=== PATIENT | male | born 1950 | race African-American/Black ===

== ENCOUNTER 2021-09-22 05:30 | Day surgery (SDC) | payer MEDICARE, MEDICAID ==
[~2021-09-22] VITALS: Ht 175.3 cm; Wt 68.0 kg
[~2021-09-22 05:30] MED LIST: ATOR10TA PO; CARV3.1242 PO; CYCLOPENTOLATE HCL 1% OPHTH DROPS 2ML RIGHTEYE ONE; LACTATED RINGERS 1,000 ML IV SCH; PHENYLEPHRINE HCL 10% OPHTH DROPS 5ML RIGHTEYE ONE; TROPICAMIDE 1% OPHTH DROPS 15ML RIGHTEYE ONE
[2021-09-22] MEDS ORDERED: LACTATED RINGERS 1,000 ML IV SCH (06:25)
[2021-09-22 06:31] LABS: HEMATOCRIT. 39.9 % (42.0-52.0); MEAN CORPUSCULAR HEMOGLOBIN 28.3 pg (28.0-32.0); MEAN CORPUSCULAR VOLUME 87.1 fL (80.0-94.0); MEAN PLATELET VOLUME 10.4 fl (7.4-10.4); PLATELET 141 x1000/uL (130-400); RED BLOOD CELL COUNT 4.58 mill/uL (4.7-6.1); RED CELL DISTRIBUTION WIDTH 12.7 % (11.6-14.6)
[2021-09-22] MEDS ORDERED: ASPI-1497 MT (06:45)
[2021-09-22] MEDS ORDERED: SACU1TAB MT (06:45)
[2021-09-22 06:57] LABS: CHLORIDE 109 mEq/L (98-107)
[2021-09-22] MEDS ORDERED: BALANCED SALT IRRIG SOLN COMB1 500ML OP ONE (07:15)
[2021-09-22] MEDS ORDERED: TRYPAN BLUE 0.5 ML DISP.SYRIN IO ONE (07:24)
[2021-09-22] MEDS ORDERED: HYALURONATE SODIUM 10 MG/ML 0.55ML SYRINGE IO ONE ×2 (07:25→09:00)
[2021-09-22] MEDS ORDERED: PHENYLEPHRINE HCL 10 MG/ML 1ML (IV VIAL) IV ONE (08:01)
[2021-09-22] MEDS ORDERED: MIDAZOLAM HCL 2 MG/2 ML VIAL ONE (08:01)
[2021-09-22] MEDS ORDERED: SODIUM CHLORIDE 0.9% 10ML VIAL ONE (08:02)
[2021-09-22] MEDS ORDERED: ONDANSETRON HCL 4MG/2ML INJ ONE (08:02)
[2021-09-22] MEDS ORDERED: EPHEDRINE SULFATE 50MG/ML VIAL ONE (08:02)
[2021-09-22] MEDS ORDERED: FENTANYL CITRATE/PF 50MCG/ML 2ML VIAL ONE (08:02)
[2021-09-22] MEDS ORDERED: DEXAMETHASONE 4MG/ML 1ML VIAL ONE (08:02)
[2021-09-22] MEDS ORDERED: LIDOCAINE HCL 1% 10 MG/ML 10ML VIAL ONE (08:02)
[2021-09-22] MEDS ORDERED: PROPOFOL 200MG/20ML VIAL IV ONE (08:03)
[2021-09-22] MEDS ORDERED: FENTANYL CITRATE/PF 50MCG/ML 2ML VIAL IV PRN (08:45)
[2021-09-22 09:00] LABS: PLATELET ESTIMATE NORMAL
[2021-09-22] MEDS ORDERED: PREDNISOLONE ACETATE 1% OPHTH DROPS 5ML ONE (09:00)
[2021-09-22] MEDS ORDERED: NEO/POLYMYX B SULF/DEXAMETH OPHTH OINT 3.5GM ONE (09:00)
[2021-09-22] MEDS ORDERED: BUPIVACAINE HCL/PF 0.75% (7.5MG/ML) 10ML ONE (09:00)
[2021-09-22] MEDS ORDERED: TETRACAINE 0.5% OPHTH DROPS 4ML ONE (09:00)
[2021-09-22] MEDS ORDERED: LIDOCAINE HCL/PF 2% 20 MG/ML 10ML VIAL ONE (09:00)
[2021-09-22] MEDS ORDERED: ACETYLCHOLINE CHLORIDE INTRAOCULAR SOLUTION 1:100 ELECTROLYTE DILUENT IO ONE (09:00)
[2021-09-22] MEDS ORDERED: LIDOCAINE HCL 2%/EPINEPHRINE 1:100,000 20 ML VIAL INFIL ONE (09:00)
[2021-09-22] MEDS ORDERED: CIPROFLOXACIN 0.3% OPHTH SOLN 2.5ML ONE (09:00)
[2021-09-22] MEDS ORDERED: BALANCED SALT IRRIG SOLN 15ML ONE (09:00)
== END 2021-09-22 10:25 | disposition home or self-care (01) ==
LOC: OR 05:30
PROVIDERS: ATTEND Ophthalmology
DX: H25.89 Other age-related cataract (principal); E78.00 Pure hypercholesterolemia, unspecified; I10 Essential (primary) hypertension; I25.10 Atherosclerotic heart disease of native coronary artery without angina pectoris; Z79.82 Long term (current) use of aspirin; Z79.899 Other long term (current) drug therapy; Z98.890 Other specified postprocedural states; Z20.822 Contact with and (suspected) exposure to COVID-19
CPT/HCPCS: 36415; 66984; 67005; 80048; 85025; 87426; J1100; J2250; J2370; J2405; J2704; J3010; J3490; V2630; V2632; Q9957

== ENCOUNTER → 2025-05-05 | Day surgery (SDC) | payer MEDICARE, MEDICAID ==
[~2025-05-05] VITALS: Ht 175.3 cm; Wt 65.8 kg
[2025-05-05] VITALS (10 sets, daily range): BP systolic 137–154; BP diastolic 56–86; PULSE 73–80; RESP 16–20; O2SAT 99–100
[~2025-05-05] MED LIST changes: +ASPI-1497 MT; -CYCLOPENTOLATE HCL 1% OPHTH DROPS 2ML RIGHTEYE ONE; +FENTANYL CITRATE/PF 50MCG/ML 2ML VIAL ONE; -LACTATED RINGERS 1,000 ML IV SCH; +LIDOCAINE HCL 1% 10 MG/ML 10ML VIAL ONE; -PHENYLEPHRINE HCL 10% OPHTH DROPS 5ML RIGHTEYE ONE; +SACU1TAB MT; -TROPICAMIDE 1% OPHTH DROPS 15ML RIGHTEYE ONE
== END | disposition home or self-care (01) ==
LOC: RAD 08:50
PROVIDERS: ATTEND Thoracic Surgery (Cardiothoracic Vascular Surgery)
DX: R91.8 Other nonspecific abnormal finding of lung field (principal); R91.1 Solitary pulmonary nodule; I10 Essential (primary) hypertension; E78.5 Hyperlipidemia, unspecified; Z79.899 Other long term (current) drug therapy; Z98.890 Other specified postprocedural states
CPT/HCPCS: 32408; 71045; J3010; J2003; 99152; 99153; G0500